=== PATIENT | female | born 1955 | race Caucasian/White ===

== ENCOUNTER 2023-09-20 22:26 | Inpatient (IN) | payer OTHER, SELFPAY ==
[2023-09-20] VITALS (8 sets, daily range): BP systolic 108–201; BP diastolic 49–90; BMI 28.3
[2023-09-20] MEDS: DILAUDID 0.5 MG IV (17:44)
[2023-09-20] MEDS: ZOFRAN 4 MG IV (17:45)
[2023-09-20 18:55] LABS: Urine Albumin Negative (Neg - Trace); Urine Bilirubin Negative (Negative); Urine Character Clear (Clear); Urine Color Yellow; Urine Glucose Negative (Negative); Urine Ketone Trace (Negative); Urine Leukocyte Negative (Negative); Urine Nitrite Negative (Negative); Urine Occult Blood Negative (Negative); Urine Specific Gravity 1.015 (<1.030); Urine Urobilinogen Negative (Neg - 1+)
[2023-09-20] MEDS: ZOFRAN ODT (ORALLY DISINTEGRATING) 4 MG PO (20:38)
[2023-09-20] MEDS: NSS 1000 IV (21:06)
--- NOTE | 2023-09-20 21:12 | ED.MUSCINJ ---
HPI-Injury
General
Chief Complaint: Musculo-Skeletal Complaint
Source: patient
Exam Limitations: none
Time Seen by Provider: 09/20/23 16:26
Nursing documentation reviewed up to this point in time: agreed with
Travel History
Have you had any contact with someone who has COVID-19?: No
Do you have any symptoms of coronavirus? Fever > 100 degrees, chills, cough, shortness of breath, sore throat, loss of taste or smell, muscle aches, or headache?: No
History of Present Illness-Injury
Is this injury a work related problem?: No
Is pt an associate of [facility]?: No
Initial Injury comments:
Patient to ED with complaint of severe low back spasms. States symptoms started earlier this month. Started to improve but then she bent forward this week and pain worsened. She was evaluated by her PCP and sent to PT, had her first appointment
yesterday. Since then the pain has been intolerable. To ED via EMS for eval. Denies any radiation of pain. No bowel or bladder symptoms. No weakness in extremities, no saddle paresthesia. Pain is worse wtih movement
Past History
Past History
ED Past Medical History: Cancer (Thyroid CA), HTN, Hypercholesterolemia, Hypothyroidism and Other (HSV 1 infection, Ulcerative Colitis, thyroid disease, anxiety disorder, pancreatitis, anemia)
ED Past Surgical History: Cholecystectomy, Gynecological (Hysterectomy total) and Other (Thyroidectomy)
Social History
Tobacco: Former smoker
Alcohol: None
Personal: Single
Living: with family (Mother)
Employment: Employed
Review of Systems
Review of Systems
Allergies reviewed?: Yes
All Other Systems: ROS reviewed and negative except as documented in HPI and ROS
Constitutional: Reports no symptoms
EENT: Reports no symptoms
Respiratory: Reports no symptoms
Cardiac: Reports no symptoms
ABD/GI: Reports no symptoms
: Reports no symptoms
Musculoskeletal: Reports back pain (muscle spasms low back)
Skin: Reports no symptoms
Neurological: Reports no symptoms
Psychiatric: Reports no symptoms
Musculoskeletal Injury Exam
Musculoskeletal Injury Exam
Bilateral Lower Back:
Pain with Movement?: Moderate
Tender to palpation?: Moderate
Soft tissue swelling?: None
External deformity and angulation?: None
Joint effusion?: None
Contusion?: None
Hematoma-local bleeding into tissue?: None
Strain- Sprain- Tear (Connective tissue injury)?: Moderate
Crepitus with movement?: No
Joint instability?: No
Malalignment/deformity?: No
Range of motion: Limited
Distal skin color and temperature: normal-warm & good color
Capillary Refill: normal
Normal distal neurovascular exam?: Yes
Phy Exam
General Physical Exam
General Presentation: well appearing and no apparent distress
General age: appears stated age
General Skin: warm and dry
General Habitus: normal
General Mental: alert
Cardiovascular Exam
Cardiovascular Exam: regular rate/rhythm and no edema
Pulmonary Exam
Pulmonary Exam: lungs clear and no respiratory distress
Gastrointestinal Exam
Gastrointestinal Exam: normal bowel sounds, non tender, soft and no organomegaly
Musculoskeletal Exam
Musculoskeletal Exam: neuro vasc intact and other (intractable low back pain)
Skin Exam
Skin Exam: normal color
Psychiatric Exam
Psychiatric Exam: normal mood/affect
Injury Course
Orders/Labs/Results
Orders:
Orders
09/20/23 Dinner
Regular
At Your Request: Full Participation
09/20/23 16:45
HYDROmorphone [Dilaudid] 0.5 mg IV NOW STA
Ondansetron Injectable [Zofran] 4 mg IV NOW STA
09/20/23 18:26
Lumbar Spine Complete, 4 View [CR Lumbar Spine Comp Min 4 Vw*] Urgent
Comment:
Reason For Exam: pain
09/20/23 18:34
Urinalysis Reflex To Culture Urgent
Date Specimen was Collected: 09/20/23
Time Specimen was Collected: 18:32
09/20/23 20:37
Ondansetron Orally Disint [Zofran Odt (Orally Disintegrating)] 4 mg .ROUTE .STK-MED ONE
09/20/23 20:38
Ondansetron Orally Disint [Zofran Odt (Orally Disintegrating)] 4 mg PO NOW STA
09/20/23 20:56
0.9% Sodium Chloride 1000 ml [Nss] 1,000 ml IV BOLUS
09/20/23 20:57
Complete Blood Count/With Diff Urgent
Comprehensive Metabolic Panel Urgent
09/20/23 21:11
Metoclopramide [Reglan] 10 mg IV NOW STA
09/20/23 22:14
Admit/Transfer Patient As Directed
Co-Sign Provider:
Level of Care: Inpatient admission
Assign to:: Medical/Surgical
Physician / Group: sandra
Diagnosis: lower back pain
Reason for Hospitalization: lower back pain
Expected length of stay greater than two midnights?: Yes
ELOS- Estimated Length of Stay in days: 2
I certify the patient meets the requirements for IP care: Yes
Code Status As Directed
Resuscitation Status: Full Code
09/20/23 22:15
Acetaminophen [Tylenol] 650 mg PO Q4HPRN PRN
09/20/23 22:16
HYDROmorphone [Dilaudid] 0.5 mg IV Q4HPRN PRN
09/20/23 23:02
Cholecalciferol (Vitamin D3) [VITAMIN D3 (cholecalciferol)] 25 mcg PO DAILYPRN PRN
Multivitamin [Theragran] 1 tablet PO DAILYPRN PRN
Ondansetron Injectable [Zofran] 4 mg IV Q6HPRN PRN
09/20/23 23:02
Activity As Directed
Activity Level: As Tolerated
Vital Signs As Directed
Frequency: Per unit guidelines
Ot Eval And Treat Routine
Pt Eval And Treat Routine
Activity Level: As Tolerated
DX Deep Vein Thrombosis Video Routine
09/21/23 05:39
Complete Blood Count/With Diff IN AM
Comprehensive Metabolic Panel IN AM
09/21/23 07:00
Levothyroxine [Synthroid] 75 mcg PO DAILY AT 0700
09/21/23 08:00
Cyclobenzaprine HCl [Flexeril] 5 mg PO TID
Heparin 5,000 units SC Q12
09/21/23 18:00
FOLic ACID [Folvite] 1 mg PO QPM
Sulfasalazine [Azulfidine] 500 mg PO QPM
Abnormal Lab Results
09/20/23 09/20/23
18:34 20:57
MPV 12.8 H fL
(7.4-10.4)
Neutrophils % 75.5 H %
(42.2-75.2)
Lymphocytes % 16.7 L %
(20.5-51.1)
Glucose 153 H mg/dl
(70-99)
Total Bilirubin 1.9 H mg/dl
(0.2-1.3)
Urine Ketones Trace A
(Negative)
09/20/23 20:57
09/20/23 20:57
*Radiology
Radiology exam reviewed: radiology read reviewed
*Pulse Oximetry
Patient hypoxic: no
*Critical Care Note
Total Time (30-74mins, 75-104mins- exclusive of procedures): Not Applicable
Update Note
Update Note:
Patient with minimal improvement in pain with dilaudid, now reports n/v due to med. Treating with PRAKASH regseven. She is unable to transfer independently due to pain. Lives alone and is currently unable to care for self. Will need to admit at this
time for intractable pain.
ED Attending Note
-
Portions of this chart may have been created with voice recognition software.� Occasional wrong word or��sound alike� substitutions may have occurred due to the inherent limitations of voice recognition software.
Discharge Plan
Departure
Patient Disposition: Admit
Date of Disposition: 09/20/23
Time of Disposition: 21:20
Presentation/result/management discussed w/ accepting MD/DO: Hospitalist
Patient with high blood pressure during this ER visit?: No
Condition: Fair
Covid-19: Not Applicable
Discharge Problem:
Intractable low back pain
Interventions
Interventions:
*Risk Screen - Suicide Last Done: 09/20/23 15:59
*General Assessment Last Done: 09/20/23 15:59
*Neglect/Abuse Screening Last Done: 09/20/23 15:59
ED- Fall Risk Assessment Last Done: 09/20/23 16:08
*ED COVID-19 Vaccine History Last Done: 09/20/23 15:59
*Nursing Disposition Last Done: 09/20/23 22:57
ED-Musculoskeletal Assessment Last Done: 09/20/23 16:08
Discharge Date and Time
Discharge Date/Time: 09/20/23 22:57
[2023-09-20 21:13] LABS: % Basophils 0.4 % (0-2); % Eosinophils 0.9 % (0-6); % Immature Granulocytes 0.4 % (0-0.5); % Lymphocytes 16.7 % (20.5-51.1); % Monocytes 6.1 % (1.7-9.3); % Neutrophils 75.5 % (42.2-75.2); Absolute Eosinophils 0.1 10^3/uL (0-0.7); Absolute Lymphocytes 1.3 10^3/uL (1.2-3.4); Absolute Monocytes 0.5 10^3/uL (0.1-0.6); Absolute Neutrophils 5.7 10^3/uL (1.4-6.5); Hematocrit 39.8 % (37.0-47.0); Hemoglobin 13.4 g/dL (12.0-16.0); Mean Corp Hgb Conc. 33.7 g/dL (33.0-37.0); Mean Corpuscular Hgb 30.2 pg (27.0-31.0); Mean Corpuscular Volume 89.6 fL (81.0-99.0); Mean Platelet Volume 12.8 fL (7.4-10.4); Nucleated Red Blood Cells % 0 %; Platelet Count 206 10^3/uL (130-400); Red Blood Cell Count 4.44 10^6/uL (4.20-5.40); Red Cell Dist. Width 13.5 % (11.5-14.5); White Blood Cell Count 7.6 10^3/uL (4.8-10.8)
[2023-09-20 21:26] LABS: ALT (SGPT) 21 U/L (0-35); AST (SGOT) 23 U/L (14-36); Alkaline Phosphatase 81 U/L (38-126); Blood Urea Nitrogen 16 mg/dl (7-17); Calcium 8.9 mg/dl (8.4-10.2); Carbon Dioxide 25 mmol/L (22-30); Chloride 106 mmol/L (98-107); Estimated Creatinine Clearance 75 ml/min; Glucose 153 mg/dl (70-99); Potassium 4.3 mmol/L (3.5-5.1); Sodium 136 mmol/L (135-145); Total Bilirubin 1.9 mg/dl (0.2-1.3); Total Protein 6.7 g/dl (6.3-8.2); eGFR > 60.00
--- NOTE | 2023-09-20 22:18 | HPS.HSE ---
Addendum entered and electronically signed by Alan Cardenas MD 09/20/23 23:08:
Miralax started.
Original Note:
Family Physician
-
Family Physician: Wayne Yates
Chief Complaint
-
lower back pain
History of Present Illness
68-year-old female past medical history of thyroid cancer status post thyroidectomy, hypertension, hypercholesteremia, hypothyroidism, ulcerative colitis, anxiety, anemia, HSV-1 infection, presenting with severe lower back spasms which originally
started 4 months ago after her mother and she was cleaning out her house and lifting and moving a lot of furniture.
Over the past month patient has been having severe pain across the lower back worse on the left side radiating little bit down the butt on the left side. Pain does not radiate to the legs. She has been having numbness on the bottom of her feet
preceding the lower back pain. Pain actually improved over the past month but then this week she bent forward and pain got worse again. She saw her primary care physician who sent her to physical therapy yesterday and since that session she has
been having intolerable pain. She describes spasms in her left lower back. She has only been taking Tylenol at home. She was prescribed Flexeril but did not take it.
She denies any bowel or bladder incontinence. She has been unable to walk over the past 2 days. She denies any genital or anal numbness.
Medical History
Past Medical History
Past Medical History: Reports Other (thyroid cancer status post thyroidectomy, hypertension, hypercholesteremia, hypothyroidism, ulcerative colitis, anxiety, anemia, HSV-1 infection)
Past Surgical History: Reports Other (Cholecystectomy, Gynecological (Hysterectomy total) and Other (Thyroidectomy))
Social History
Tobacco: Non-smoker
Alcohol: None
Drug: None
Family History
Family History: Not pertinent
Allergies / Home Medications
Allergies reflects when Allergies were last updated in [email or web address].
Home Medications with original date entered in [email or web address]
Allergy/Medication List:
Allergies
Allergy/AdvReac Type Severity Reaction Status Date / Time
aspirin Allergy Unknown Verified 09/20/23 22:11
cefuroxime axetil Allergy black Verified 09/20/23 22:11
[From Ceftin] stools
dicyclomine HCl [From Bentyl] Allergy palpatation Verified 04/02/21 09:24
s
lactose Allergy Nausea / Verified 04/02/21 09:24
Vomiting
levofloxacin [From Levaquin] Allergy Rash Verified 04/02/21 09:24
methylprednisolone Allergy 'speed up' Verified 04/02/21 09:24
[From Medrol]
morphine Allergy Nausea / Verified 04/02/21 09:24
Vomiting
Home Medications
cholecalciferol (vitamin D3) 25 mcg (1,000 unit) tablet (Vitamin D3) 1,000 unit PO DAILY PRN supplement 03/28/14
folic acid 1 mg tablet 1 mg PO QPM 03/28/14
acetaminophen 500 mg tablet 500 - 1,000 mg PO Q6H PRN mild pain 09/20/23
levothyroxine 75 mcg tablet (Synthroid) 75 mcg PO DAILY 09/20/23
lorazepam 0.5 mg tablet 0.5 mg PO Q6H PRN anxiety/dental work 09/20/23
multivitamin 1 tab PO DAILY PRN supplement 09/20/23
ondansetron HCl 4 mg tablet 4 mg PO Q8H PRN nausea/vomiting 09/20/23
sulfasalazine 500 mg tablet 1 g PO QPM 09/20/23
Review of Systems
-
History Source: Patient
A 12 point ROS was completed and negative except as noted: Yes
Constitutional: Reports No Symptoms
EENT: Reports No Symptoms
Respiratory: Reports No Symptoms
Cardiac: Reports No Symptoms
Abdomen/GI: Reports No Symptoms
: Reports No Symptoms
Musculoskeletal: Reports No Symptoms
Skin: Reports No Symptoms
Neurological: Reports No Symptoms
Endocrine: Reports No Symptoms
Hematologic/Lymphatic: Reports No Symptoms
Psych: Reports No Symptoms
Physical Exam
Vital Signs
Vital Signs
Temp Pulse Resp BP Pulse Ox
98.5 F 73 22 163/59 91
09/20/23 15:59 09/20/23 15:59 09/20/23 15:59 09/20/23 21:00 09/20/23 21:30
Physical Exam
General: Well Developed, Well Nourished and No Apparent Distress
HEENT: NormoCephalic, Moist mucous membranes and Atraumatic
Respiratory: Clear
Cardiac: S1/S2 and Regular Rhythm; No Murmur or Rub
GI: Soft, Non Tender, Non Distended and Normal Bowel Sounds; No Organomegaly
Rectal: Deferred by Provider
Musculoskeletal: No Clubbing, No Cyanosis and No Edema
Skin: No Rash
Neuro: Nonfocal/grossly intact
Laboratory Results
-
09/20/23 20:57
09/20/23 20:57
Laboratory Results
Total Bilirubin 1.9 mg/dl (0.2-1.3) H 09/20/23 20:57
AST 23 U/L (14-36) 09/20/23 20:57
ALT 21 U/L (0-35) 09/20/23 20:57
Alkaline Phosphatase 81 U/L (38-126) 09/20/23 20:57
Data Reviewed
-
Lab Data: Labs Reviewed by me
Old Records: Reviewed
Impression/Plan
-
IMPRESSION:
PLAN:
# Acute on chronic lower back pain with severe paraspinal muscle spasms
-Severe excruciating pain so unwilling to assess strength
-Lumbar x-ray pending
-Tylenol for pain,
-Dilaudid as needed although patient did become nauseous
-Flexeril TID for muscle spasms
-PT/OT
Thyroid cancer status post thyroidectomy
-Continue levothyroxine
Essential hypertension
Hypercholesterolemia
Ulcerative colitis
-Continue sulfasalazine
Anxiety
-Continue Ativan
Full code
DVT prophylaxis�heparin
Regular diet
[2023-09-21] MEDS: TYLENOL 650 MG PO ×2 (00:21→13:33)
[2023-09-21 05:48] LABS: % Basophils 0.5 % (0-2); % Eosinophils 1.1 % (0-6); % Immature Granulocytes 0.3 % (0-0.5); % Lymphocytes 17.1 % (20.5-51.1); % Monocytes 5.8 % (1.7-9.3); % Neutrophils 75.2 % (42.2-75.2); Absolute Eosinophils 0.1 10^3/uL (0-0.7); Absolute Lymphocytes 1.1 10^3/uL (1.2-3.4); Absolute Monocytes 0.4 10^3/uL (0.1-0.6); Absolute Neutrophils 4.8 10^3/uL (1.4-6.5); Hemoglobin 11.7 g/dL (12.0-16.0); Mean Corp Hgb Conc. 35.5 g/dL (33.0-37.0); Mean Corpuscular Hgb 29.8 pg (27.0-31.0); Mean Corpuscular Volume 84.2 fL (81.0-99.0); Mean Platelet Volume 11.6 fL (7.4-10.4); Nucleated Red Blood Cells % 0 %; Platelet Count 186 10^3/uL (130-400); Red Blood Cell Count 3.92 10^6/uL (4.20-5.40); Red Cell Dist. Width 13.4 % (11.5-14.5); White Blood Cell Count 6.4 10^3/uL (4.8-10.8)
[2023-09-21] MEDS: SYNTHROID 75 MCG PO (06:06)
[2023-09-21 06:48] LABS: ALT (SGPT) 16 U/L (0-35); AST (SGOT) 19 U/L (14-36); Albumin 3.2 g/dl (3.5-5.0); Alkaline Phosphatase 65 U/L (38-126); Blood Urea Nitrogen 14 mg/dl (7-17); Calcium 8.6 mg/dl (8.4-10.2); Carbon Dioxide 23 mmol/L (22-30); Chloride 108 mmol/L (98-107); Estimated Creatinine Clearance 75 ml/min; Glucose 107 mg/dl (70-99); Sodium 138 mmol/L (135-145); Total Bilirubin 1.7 mg/dl (0.2-1.3); Total Protein 5.7 g/dl (6.3-8.2); eGFR > 60.00
[2023-09-21 07:00] VITALS: BP 167/57
[2023-09-21] MEDS: FLEXERIL 5 MG PO ×3 (09:30→23:32)
[2023-09-21] MEDS: MIRALAX 17 GRAMS PO (09:31)
--- NOTE | 2023-09-21 11:05 | W.PN.HOSP.TC ---
Today's Communication/Plan
-
see bold
Assessment / Plan
Assessment / Plan
Gen: NAD, AAOx3.
Eyes: EOMI, PERRLA, no scleral icterus.
Neck: supple.
CV: RRR, +S1/S2, no m/r/g.
Resp: CTAB, no rales, wheezes, or rhonchi.
Abd: +BS, soft, NT, ND
Skin: No rashes.
Neuro: CN 2-12 intact, RLE 4/5 (limited exam due to pain)
MSK: palpation of the lumbar spinous processes does not reveal bony deformities and does not produce pain. palpation of R lower paraspinal musculature produces pain.
Psych: Normal mood and affect.
L-spine Xray: No radiographic evidence for fracture.
Acute on chronic lower back pain with severe paraspinal muscle spasms
-Tylenol/dliaudid PRN for pain,
-Flexeril TID for muscle spasms
-check MRI L-spine
-PT/OT
Other problems:
Thyroid cancer status post thyroidectomy: Continue levothyroxine
Essential hypertension: Patient is not on antihypertensive medications at home and her blood pressure has been labile during admission.
Hypercholesterolemia
Ulcerative colitis: Continue sulfasalazine
Anxiety: Continue Ativan
FULL/heparin
Anticipated Discharge: Within 24 hours
Subjective/Interval History
-
Date of Service: September 21, 2023
Still with back pain, just took Flexeril.
Objective Data
-
Labs:
Laboratory Results
09/21/23
05:39
WBC 6.4
Hgb 11.7 L
Hct 33.0 L
Plt Count 186
Sodium 138
Potassium 4.0
Chloride 108 H
Carbon Dioxide 23
BUN 14
Creatinine 0.7
Glucose 107 H
Calcium 8.6
Total Bilirubin 1.7 H
AST 19
ALT 16
Alkaline Phosphatase 65
Vital Signs:
Vital Signs
Temp Pulse Resp BP Pulse Ox
97.8 F 54 20 167/57 99
09/21/23 07:00 09/21/23 07:00 09/21/23 07:00 09/21/23 07:00 09/21/23 07:00
[2023-09-21 13:34] VITALS: BP 151/75; PULSE 68; O2SAT 97
[2023-09-21 13:37] VITALS: BP 151/75; PULSE 68; O2SAT 97
[2023-09-21 15:00] VITALS: BP 112/65
--- NOTE | 2023-09-21 16:43 | CM ---
met with patient at bedside .[place] apt [place] with an elevator,then bed and bath is on one level,she ws amb i until she hurt her back.now uses walker.her sister moiz lives close by and is supportive.her pcp is dr wenceslao parry and
she gets her meds from [facility] in [place].patient is adm with lower back pain on flexeril and dilaudid for pain.she is scheduled for an mri back.patient was seen by therapy who rec skilled rehab.patient went to [place] [facility] once but had
increased back pain during her session.i left patient with options of correction facility vs home therapy vs op therapy and patient would like to think about these options.she has never had a vn or been to ip rehab in past.she has no dme in the
home.patient is not sure which option would be best for her since she was in process of cleaning out her mother's home after she pssed away.
Plan:home with [facility]cs vs op physical therapy vs skilled rehab.
[2023-09-21] MEDS: FOLVITE 1 MG PO (17:52)
[2023-09-21] MEDS: AZULFIDINE 1000 MG PO (17:52)
[2023-09-21 23:21] VITALS: BP 152/63
[2023-09-22] MEDS: SYNTHROID 75 MCG PO (06:04)
[2023-09-22 07:00] VITALS: BP 152/72
[2023-09-22] MEDS: FLEXERIL 5 MG PO ×3 (07:58→21:48)
[2023-09-22] MEDS: MIRALAX 17 GRAMS PO (08:00)
--- NOTE | 2023-09-22 09:49 | W.PN.HOSP.TC ---
Today's Communication/Plan
-
Still awaiting MRI L-spine, see below
Assessment / Plan
Assessment / Plan
Gen: NAD, AAOx3.
Eyes: EOMI, PERRLA, no scleral icterus.
Neck: supple.
CV: Remains RRR, +S1/S2, no m/r/g.
Resp: Remains CTAB, no rales, wheezes, or rhonchi.
Abd: +BS, soft, NT, ND
Skin: No rashes.
Neuro: CN 2-12 intact, moves all 4 extremities
Psych: Normal mood and affect.
L-spine Xray: No radiographic evidence for fracture.
Acute on chronic lower back pain with severe paraspinal muscle spasms
-Tylenol/dliaudid PRN for pain,
-Flexeril TID for muscle spasms
-check MRI L-spine
-PT/OT
Other problems:
Thyroid cancer status post thyroidectomy: Continue levothyroxine
Essential hypertension: Patient is not on antihypertensive medications at home and her blood pressure has been labile during admission.
Hypercholesterolemia
Ulcerative colitis: Continue sulfasalazine
Anxiety: Continue Ativan
FULL/heparin
Anticipated Discharge: Within 24 hours
Subjective/Interval History
-
Date of Service: September 22, 2023
Patient reports back pain has improved somewhat. Tylenol and Flexeril have helped.
Objective Data
-
Vital Signs:
Vital Signs
Temp Pulse Resp BP Pulse Ox
98.0 F 80 16 152/72 98
09/22/23 07:00 09/22/23 07:00 09/22/23 07:00 09/22/23 07:00 09/22/23 07:00
I&O
09/21/23 09/22/23 09/23/23
06:59 06:59 06:59
Intake Total 700 / 700 840 / 840
Balance / 840 / 840
[2023-09-22] MEDS: ATIVAN 1 MG IV (11:30)
[2023-09-22 15:00] VITALS: BP 152/69
--- NOTE | 2023-09-22 15:55 | VNURNOTE ---
Home health liaison met with patient to discuss [facility] services, visit scheduling/frequency, homebound status and pet policy. Patient understands home visits will be 1-2 times a week to assess and teach medical management. Patient aware a visiting
nurse will contact them for start of care within 1-2 days after discharge from . Brochure given with contact information. [facility] Referral completed in care port
[2023-09-22] MEDS: AZULFIDINE 1000 MG PO (17:09)
[2023-09-22] MEDS: FOLVITE 1 MG PO (17:09)
--- NOTE | 2023-09-22 17:15 | CM ---
met with patient at bedside.patient did have her mri lumbar spine.she relates that tylenol and flexeril has helped her pain.she was seen again by therapy and they rec home with home pt.patient being followed by [facility]cm to follow patient's progress.
plan: home with [facility].
[2023-09-22] MEDS: TYLENOL 650 MG PO (18:04)
[2023-09-22 23:00] VITALS: BP 132/54
[2023-09-23] MEDS: FLEXERIL 5 MG PO (07:45)
[2023-09-23] MEDS: SYNTHROID 75 MCG PO (07:46)
[2023-09-23] MEDS: MIRALAX 17 GRAMS PO (07:46)
--- NOTE | 2023-09-23 08:45 | W.PN.HOSP.TC ---
Today's Communication/Plan
-
d/c
Assessment / Plan
Assessment / Plan
Gen: NAD, AAOx3.
Eyes: EOMI, PERRLA, no scleral icterus.
Neck: supple.
CV: continues to remain RRR, +S1/S2, no m/r/g.
Resp: continues to remain CTAB, no rales, wheezes, or rhonchi.
Abd: +BS, soft, NT, ND
Skin: No rashes.
Neuro: CN 2-12 intact, 5/5 strength x 4
Psych: Normal mood and affect.
L-spine Xray: No radiographic evidence for fracture.
MRI L-spine:
1. � MODERATE SIZE CENTRAL INFERIOR DISC EXTRUSION at L3/L4 causing mild central canal stenosis.
2. � Moderate discogenic degenerative disease and small left central inferior disc extrusion at L4/L5.
3. � Small central inferior disc extrusion at L5/S1.
4. � Small central disc herniation at L1/L2.
5. � Small left central superior disc extrusion at T12/L1.
6. � Mild left convex curvature of the midlumbar spine.
Acute on chronic lower back pain with severe paraspinal muscle spasms:
-MRI L-spine above
-Tylenol/Dilaudid PRN for pain
-Flexeril TID for muscle spasms
-PT/OT
Other problems:
Thyroid cancer status post thyroidectomy: Continue levothyroxine
Essential hypertension: Patient is not on antihypertensive medications at home and her blood pressure has been labile during admission.
Hypercholesterolemia
Ulcerative colitis: Continue sulfasalazine
Anxiety: Continue Ativan
FULL/heparin
Total time spent on d/c = 31 min. This included today's physical exam, progress note, review of laboratory and diagnostic data, preparation of discharge documents and prescriptions, and discussions about the pt's hospital course and discharge plan
with the patient and other medical referral coordinator involved in the patient's care.
Anticipated Discharge: Today
Subjective/Interval History
-
Date of Service: September 23, 2023
No new complaints.
Objective Data
-
Vital Signs:
Vital Signs
Temp Pulse Resp BP Pulse Ox
97.6 F 66 20 132/54 96
09/23/23 07:59 09/23/23 07:59 09/23/23 07:59 09/22/23 23:00 09/23/23 07:59
I&O
09/22/23 09/23/23 09/24/23
06:59 06:59 06:59
Intake Total 840 / 840 1020 / 1020
Balance 840 / 840 1020 / 1020
[2023-09-23] MEDS: TYLENOL 650 MG PO (09:49)
--- NOTE | 2023-09-23 09:52 | CM ---
CM following re: discharge planning.
Reviewed pt's chart, met with pt.
According to MD pt is medically stable to be discharged. Pt is aware, expressed her agreement at she is requested to talk to MD. MD is notified of pt's request. IMM reviewed, placed in chart, pt has a copy. Pt stated she will take Uber to get home.
PT and PT evaluations noted - home PT/OT recommended. pt is aware, expressed her agreement and she preferred [facility]. A referral to [facility] noted.
Please fax discharge instructions to [facility] at [phone].
D/C plan: home with [facility] and family support. Pt stated she will take Uber to get home.
No other discharge needs identified.
--- NOTE | 2023-09-23 13:51 | W.DCSUMMARY ---
Discharge Summary
Discharge Data
Date of Admission: 09/20/23
Date of Discharge: 09/23/23
-
Pending Results: No
Hospital Course
Primary diagnoses:
Back pain due to lumbar disc disease and paraspinal muscle spasm
Secondary diagnoses:
Thyroid cancer status post thyroidectomy
Essential hypertension
Hypercholesterolemia
Ulcerative colitis
Anxiety
Consultants:
None
Imaging:
L-spine Xray: No radiographic evidence for fracture.
MRI L-spine:
1. � MODERATE SIZE CENTRAL INFERIOR DISC EXTRUSION at L3/L4 causing mild central canal stenosis.
2. � Moderate discogenic degenerative disease and small left central inferior disc extrusion at L4/L5.
3. � Small central inferior disc extrusion at L5/S1.
4. � Small central disc herniation at L1/L2.
5. � Small left central superior disc extrusion at T12/L1.
6. � Mild left convex curvature of the midlumbar spine.
Hospital course: 68-year-old female who presented with chief complaint of low back pain as outlined in the H&P done on admission. This was acute on chronic lower back pain. She had severe paraspinal muscle spasms. She was treated with Tylenol,
Dilaudid, Flexeril. The Flexeril seem to help her the most. She was seen by physical therapy and Occupational Therapy. MRI of the L-spine above and notable for moderate-sized central inferior disc extrusion at L3/L4 causing mild central canal
stenosis. Other findings as above. Patient was discharged on Tylenol and Flexeril as needed.
Discharge Plan
-
Patient Disposition: Home with Home Care
Discharge Diagnosis/Procedures: back pain due to lumbar disc disease and paraspinal muscle spasm
Condition: Good
Diet: No restrictions
Activity: No restrictions
Driving Restrictions: No driving while taking flexeril
Other Services: VN
Referrals:
Wayne Yates MD [Family Provider] - in less than 1 week
Prescriptions:
New
cyclobenzaprine 10 mg Tablet
5 mg PO TIDPRN PRN (Reason: muscle spasm) Qty: 30 0RF
polyethylene glycol 3350 [HealthyLax] 17 gram Powder In Packet
17 g PO DAILY Qty: 0 0RF
Continued
folic acid 1 MG tablet
1 mg PO QPM
cholecalciferol (vitamin D3) [Vitamin D3] 1,000 UNIT tablet
1,000 unit PO DAILY PRN (Reason: supplement)
levothyroxine [Synthroid] 75 mcg tablet
75 mcg PO DAILY AT 0700
lorazepam 0.5 mg tablet
0.5 mg PO Q6H PRN (Reason: anxiety/dental work)
multivitamin Tablet
1 tab PO DAILY PRN (Reason: supplement)
sulfasalazine 500 mg Tablet
1 g PO QPM
ondansetron HCl 4 mg tablet
4 mg PO Q8H PRN (Reason: nausea/vomiting)
acetaminophen 500 mg Tablet
500 - 1,000 mg PO Q6H PRN (Reason: mild pain)
Discharge Orders:
Discharge Patient (As Directed); Ordered 09/23/23
Ordered By: Kleber Ruiz
Discharge Date and Time
Discharge Date/Time: 09/23/23 12:50
== END 2023-09-23 12:50 | disposition home health service (06) | DRG 552 ==
LOC: 3 WEST ACU 22:26
PROVIDERS: Nurse Practitioner; ADMITTING PHYSICIAN Hospitalist; ATTENDING PHYSICIAN Internal Medicine; EMERGENCY PHYSICIAN Emergency Medicine; FAMILY PHYSICIAN Internal Medicine
DX: M51.85 Other intervertebral disc disorders, thoracolumbar region (principal); K51.90 Ulcerative colitis, unspecified, without complications; M51.86 Other intervertebral disc disorders, lumbar region; M51.87 Other intervertebral disc disorders, lumbosacral region; M62.830 Muscle spasm of back; E89.0 Postprocedural hypothyroidism; D64.9 Anemia, unspecified; E78.00 Pure hypercholesterolemia, unspecified; F41.9 Anxiety disorder, unspecified; I10 Essential (primary) hypertension; R26.2 Difficulty in walking, not elsewhere classified; G89.29 Other chronic pain; Z85.850 Personal history of malignant neoplasm of thyroid; Z90.710 Acquired absence of both cervix and uterus; Z87.891 Personal history of nicotine dependence; Z88.6 Allergy status to analgesic agent; Z88.1 Allergy status to other antibiotic agents; Z88.5 Allergy status to narcotic agent; Z88.8 Allergy status to other drugs, medicaments and biological substances; Z79.890 Hormone replacement therapy
CPT/HCPCS: 72110; 72148; 80053; 81003; 85025; 96361; 96374; 96375; 97163; 97167; 99284

== ENCOUNTER 2024-03-01 13:41 | Emergency (ER) | payer OTHER, SELFPAY ==
[2024-03-01 13:45] VITALS: BP 180/98
[2024-03-01 14:35] LABS: % Basophils 0.7 % (0-2); % Eosinophils 1.9 % (0-6); % Immature Granulocytes 0.5 % (0-0.5); % Lymphocytes 20.8 % (20.5-51.1); % Monocytes 7.8 % (1.7-9.3); % Neutrophils 68.3 % (42.2-75.2); Absolute Eosinophils 0.1 10^3/uL (0-0.7); Absolute Lymphocytes 1.2 10^3/uL (1.2-3.4); Absolute Monocytes 0.5 10^3/uL (0.1-0.6); Absolute Neutrophils 3.9 10^3/uL (1.4-6.5); Hematocrit 39.1 % (37.0-47.0); Hemoglobin 13.2 g/dL (12.0-16.0); Mean Corp Hgb Conc. 33.8 g/dL (33.0-37.0); Mean Corpuscular Hgb 29.3 pg (27.0-31.0); Mean Corpuscular Volume 86.7 fL (81.0-99.0); Mean Platelet Volume 11.9 fL (7.4-10.4); Nucleated Red Blood Cells % 0 %; Platelet Count 216 10^3/uL (130-400); Red Blood Cell Count 4.51 10^6/uL (4.20-5.40); Red Cell Dist. Width 14.9 % (11.5-14.5); White Blood Cell Count 5.8 10^3/uL (4.8-10.8)
[2024-03-01 14:53] LABS: COVID-19 Antigen Negative (Negative)
[2024-03-01 15:21] LABS: ALT (SGPT) 18 U/L (0-35); AST (SGOT) 21 U/L (14-36); Albumin 4.5 g/dl (3.5-5.0); Alkaline Phosphatase 94 U/L (38-126); Blood Urea Nitrogen 13 mg/dl (7-17); Calcium 9.6 mg/dl (8.4-10.2); Carbon Dioxide 26 mmol/L (22-30); Chloride 104 mmol/L (98-107); Glucose 108 mg/dl (70-99); Potassium 4.4 mmol/L (3.5-5.1); Sodium 139 mmol/L (135-145); Total Bilirubin 1.5 mg/dl (0.2-1.3); Total Protein 7.3 g/dl (6.3-8.2); eGFR > 60.00
[2024-03-01 15:22] VITALS: BP 147/119
[2024-03-01 15:45] LABS: Urine Albumin Negative (Neg - Trace); Urine Bilirubin Negative (Negative); Urine Character Clear (Clear); Urine Color Yellow; Urine Glucose Negative (Negative); Urine Ketone Negative (Negative); Urine Leukocyte 1+ (Negative); Urine Nitrite Negative (Negative); Urine Occult Blood Negative (Negative); Urine Urobilinogen Negative (Neg - 1+)
[2024-03-01 15:56] LABS: Urine Red Blood Cell 0-2 /HPF (0-2); Urine Squamous Cell 0-2 /LPF (Few); Urine White Cell 0-2 /HPF (0-5)
--- NOTE | 2024-03-01 16:01 | ED.GENMED ---
History of Present Illness
General
Chief Complaint: Fever
Source: patient
Exam Limitations: none
Time Seen by Provider: 03/01/24 15:39
History of Present Illness
History of Present Illness:
69-year-old female with history of ulcerative colitis presents with 6 days worth of low-grade fever fatigue and lower abdominal/rectal pain. She is quite nauseous without vomiting. She is moving her bowels and occasionally has diarrhea. Prior
history of total hysterectomy and cholecystectomy. She is on sulfasalazine and folic acid for her ulcerative colitis. No other complaints at this time
Past History
Past History
ED Past Medical History: Cancer (Thyroid CA), HTN, Hypercholesterolemia, Hypothyroidism and Other (HSV 1 infection, Ulcerative Colitis, thyroid disease, anxiety disorder, pancreatitis, anemia)
ED Past Surgical History: Cholecystectomy, Gynecological (Hysterectomy total) and Other (Thyroidectomy)
Social History
Tobacco: Former smoker
Alcohol: None
Personal: Single
Living: with family (Mother)
Employment: Employed
Phy Exam
Physical Exam
Physical Exam:
General: Well-appearing female no acute respiratory distress HEENT: Normocephalic atraumatic
Heart: Regular rate and rhythm no murmurs
Lungs: Clear no wheeze or rales
Abdomen soft tender to the lower quadrants bilaterally mild guarding no rebound tenderness normal bowel sounds left side tender more so than the right. No costovertebral angle tenderness
Extremities: No cyanosis
Skin: Warm no rash
Course
Orders/Labs/Results
Orders:
Orders
03/01/24 14:03
CBC/With Diff [Complete Blood Count/With Diff] Urgent
COVID-19 Antigen Urgent
Source: Nasal Swab
03/01/24 14:04
Comprehensive Metabolic Panel Urgent
03/01/24 15:19
Urinalysis Reflex To Culture Urgent
Date Specimen was Collected: 03/01/24
Time Specimen was Collected: 13:48
Urine Microscopic Reflex Cult Urgent
Urine Culture Urgent
AQUILES Source: U
Specimen Description:
Date Specimen was Collected: 03/01/24
Time Specimen was Collected: 13:48
03/01/24 15:56
CT Abd/pelvis W Iv Cont Urgent
Comment:
Reason For Exam: fever, LLQ pain
03/01/24 18:35
Azithromycin [Zithromax] 500 mg PO NOW STA
Abnormal Lab Results
03/01/24 03/01/24 03/01/24
14:03 14:04 15:19
RDW 14.9 H %
(11.5-14.5)
MPV 11.9 H fL
(7.4-10.4)
Glucose 108 H mg/dl
(70-99)
Total Bilirubin 1.5 H mg/dl
(0.2-1.3)
Leukocyte Esterase Rfl 1+ A
(Negative)
03/01/24 14:03
03/01/24 14:04
Vital Signs
Initial and Last Documented VS:
Initial Vital Signs
Temp Pulse Resp BP Pulse Ox
98.8 F 82 16 180/98 98
03/01/24 13:45 03/01/24 13:45 03/01/24 13:45 03/01/24 13:45 03/01/24 13:45
Last Documented Vital Signs
Temp Pulse Resp BP Pulse Ox
98.8 F 66 17 147/119 95
03/01/24 13:45 03/01/24 15:22 03/01/24 15:22 03/01/24 15:22 03/01/24 16:02
MDM/Problems Addressed
Differential Diagnosis Includes:
Low-grade fever with fatigue nausea and abdominal pain. Question viral illness versus ulcerative colitis flare diverticulitis versus abscess.
Labs ordered and reviewed with negative white count negative COVID test. Urinalysis negative. CT pending.
*Critical Care Note
Total Time (30-74mins, 75-104mins- exclusive of procedures): Not Applicable
Update Note
Update Note:
CT demonstrates mild colitis in the left side of the colon. Patient states this is different than her typical ulcerative colitis flares. She has had a low-grade fever for 7 days. Question possible secondary infectious colitis. She does not have
bloody stool but given persistence of symptoms over 7 days will cover with antibiotics. She has multiple allergies. Zithromax was ordered. Stable for discharge
ED Attending Note
-
Portions of this chart may have been created with voice recognition software.� Occasional wrong word or��sound alike� substitutions may have occurred due to the inherent limitations of voice recognition software.
Discharge Plan
Departure
Patient Disposition: Home (Routine Discharge)
Date of Disposition: 03/01/24
Time of Disposition: 18:37
Patient with high blood pressure during this ER visit?: No
Discharge Problem:
Colitis
Instructions: Colitis
Prescriptions:
New
azithromycin [Zithromax] 250 mg tablet
250 mg PO DAILY 4 Days Qty: 4 0RF
No Action
folic acid 1 MG tablet
1 mg PO QPM
cholecalciferol (vitamin D3) [Vitamin D3] 1,000 UNIT tablet
1,000 unit PO DAILY PRN (Reason: supplement)
levothyroxine [Synthroid] 75 mcg tablet
75 mcg PO DAILY AT 0700
lorazepam 0.5 mg tablet
0.5 mg PO Q6H PRN (Reason: anxiety/dental work)
multivitamin Tablet
1 tab PO DAILY PRN (Reason: supplement)
sulfasalazine 500 mg Tablet
1 g PO QPM
ondansetron HCl 4 mg tablet
4 mg PO Q8H PRN (Reason: nausea/vomiting)
acetaminophen 500 mg Tablet
500 - 1,000 mg PO Q6H PRN (Reason: mild pain)
cyclobenzaprine 10 mg Tablet
5 mg PO TIDPRN PRN (Reason: muscle spasm) Qty: 30 0RF
polyethylene glycol 3350 [HealthyLax] 17 gram Powder In Packet
17 g PO DAILY Qty: 0 0RF
Referrals:
Wayne Yates MD [Family Provider] -
Activity Restrictions/Additional Instructions:
Drink plenty fluids. Continue Tylenol for fever control. Use antibiotic as directed. Follow-up with your GI team for further evaluation
Interventions
Interventions:
*Risk Screen - Suicide Last Done: 03/01/24 13:45
*General Assessment Last Done: 03/01/24 13:45
*Neglect/Abuse Screening Last Done: 03/01/24 13:45
ED- Fall Risk Assessment Last Done: 03/01/24 16:02
ED- Neurological Assessment Last Done: 03/01/24 16:02
ED-Skin Assessment Last Done: 03/01/24 16:02
Discharge Date and Time
Print Language: MAURITANIAN
[2024-03-01] MEDS: ZITHROMAX 500 MG PO (18:40)
== END 2024-03-01 18:49 | disposition home or self-care (01) ==
LOC: EMR 13:41
PROVIDERS: Emergency Medicine; EMERGENCY PHYSICIAN Student in an Organized Health Care Education/Training Program; FAMILY PHYSICIAN Internal Medicine
DX: K51.90 Ulcerative colitis, unspecified, without complications (principal); Z87.891 Personal history of nicotine dependence; Z11.52 Encounter for screening for COVID-19
CPT/HCPCS: 99285; 74177; 80053; 81003; 81015; 85025; 87086; 87811; Q9967

== ENCOUNTER 2024-07-26 06:16 | Day surgery (SDC) | payer OTHER, SELFPAY | END 2024-07-26 09:48 | disposition home or self-care (01) | LOC: GI 06:16 | PROVIDERS: ATTENDING PHYSICIAN Specialist; FAMILY PHYSICIAN Internal Medicine | DX: K31.7 Polyp of stomach and duodenum (principal); R10.12 Left upper quadrant pain | CPT/HCPCS: 43239; 88305; 88342 ==

== ENCOUNTER 2024-10-30 06:18 | Day surgery (SDC) | payer OTHER, SELFPAY | END 2024-10-30 09:52 | disposition home or self-care (01) | LOC: GI 06:18 | PROVIDERS: ATTENDING PHYSICIAN Specialist | DX: K20.90 Esophagitis, unspecified without bleeding (principal); K31.89 Other diseases of stomach and duodenum; R10.12 Left upper quadrant pain; Z87.19 Personal history of other diseases of the digestive system | CPT/HCPCS: 43239; 88305; 88342 ==